=== PATIENT | female | born 1960 | race Caucasian/White ===

== ENCOUNTER 2019-04-26 10:28 | Emergency (ER) | payer OTHER ==
[~2019-04-26] VITALS: Ht 160 cm; Wt 84.0 kg
[2019-04-26 10:43] VITALS: Ht 160 cm; Wt 84.0 kg
[2019-04-26] MEDS ORDERED: SOD CHLORIDE 0.9% 1,000 ML IV STA (11:30)
[2019-04-26] MEDS ORDERED: LAMO200T2 PO (12:02)
[2019-04-26] MEDS ORDERED: BUSP15TA3 PO (12:03)
[2019-04-26] MEDS ORDERED: CITA40TA6 PO (12:03)
[2019-04-26] MEDS ORDERED: OMEP20CA16 PO (12:04)
[2019-04-26] MEDS ORDERED: ONDANSETRON 4 MG INJ IV PRN (13:00)
[2019-04-26] MEDS ORDERED: ACETAMINOPHEN 325 MG TAB PO PRN (13:00)
--- NOTE | 2019-04-26 13:12 | ERD ---
ER Documentation Chief Complaint Chief Complaint RECTAL BLEEDING, LOWER ABDOMINAL PAIN HPI This is a 59-year-old female with a past medical history of hypertension and bipolar. The patient presents to the emergency department as she stated yesterday she developed an episode of bright red blood per rectum. She was in [employer] shopping when she felt lightheaded and dizzy and felt as though she was in a pass out. She went to have a bowel movement stated she noticed blood present within the toilet bowl. The patient went to [facility] as she lives in [place], and she states this is the hospital she is gone to for several years. She stated when she was there they performed a CT scan with oral and IV contrast. She stated that they told her she was anemic and required blood transfusion. They also indicated that due to insurance changes she was capitated to [facility]. She states she signed a waiver she wanted to stay at [facility]. However she stated when she was there she left AMA she felt as though they were trying to force her out. She states she still feels slightly lightheaded and dizzy. She states her last colonoscopy was 5 years ago and her mother and sister also had colon carcinoma. She states she has had mild abdominal cramping in the left lower quadrant. Is been i ntermittent. There is no alleviating or exacerbating factors. She states the pain is 2 out of 10 in intensity. She denies any hemoptysis or hematemesis and states she has had no melanotic stools. She denies any history of alcohol abuse. She states she returns to [facility] today she believes that is where she is capitated to and wanted to receive a colonoscopy. ROS All systems reviewed and are negative except as per history of present illness. Medications Home Meds Reported Medications Omeprazole* (Omeprazole*) 20 Mg Capsule., 20 MG PO DAILY, #30 CAP 04/26/19 Buspirone Hcl* (Buspirone Hcl*) 15 Mg Tablet, 15 MG PO QHS, TAB 04/26/19 Citalopram Hydrobromide* (Citalopram Hydrobromide*) 40 Mg Tablet, 40 MG PO QHS, #30 TAB 04/26/19 Lamotrigine* (Lamotrigine*) 200 Mg Tablet, 200 MG PO QHS, TAB 04/26/19 Allergies Allergies: Coded Allergies: No Known Allergy (Unverified , 04/26/19) PMhx/Soc History of Surgery: No Anesthesia Reaction: No Hx Neurological Disorder: No Hx Respiratory Disorders: No Hx Cardiac Disorders: No Hx Psychiatric Problems: Yes (BIPOLAR,DEPRESSION) Hx Miscellaneous Medical Probl: No Hx Alcohol Use: No Hx Substance Use: No Hx Tobacco Use: No Smoking Status: Never smoker Physical Exam Vitals Vital Signs Date Temp Pulse Resp B/P (MAP) Pulse Ox O2 O2 Flow FiO2 Time Delivery Rate 04/26/19 98.2 69 19 137/69 98 10:43 (91) Physical Exam Constitutional:Well-developed. Well-nourished. HEENT:Normocephalic. Atraumatic.Pupils were equal round reactive to light. Moist mucous membranes.No tonsillar exudates. No conjunctival pallor Cardiovascular: Regular rate regular rhythm.No murmurs. No rubs were appreciated.S1, S2 normal. Distal pulses are palpable 2+ bilaterally. GI: Abdomen was soft. Nontender. Non Distended. No pulsatile abdominal masses or bruits. No rebound. No guarding. Bowel sounds were present and normal. Rectal: This was refused by the patient as she stated she had a rectal exam performed yesterday. She stated that she was told there is no hemorrhoids and the fecal occult blood test was positive. Muscle skeletal: Full range of motion of both the upper and lower extremities bilaterally.Normal muscle tone.No assymetrical calf tenderness or swelling. Skin: No petechia, no purpura. No lesions on the palms or the soles of the feet. No maculopapular rash. NEURO: Patient was alert, awake, orientated x3.No facial droop. Gait observed and normal with no ataxia.Speech had regular rate and rhythm. No focal neurological deficits. Result Diagram: 04/26/19 1159 04/26/19 1159 Results 24 hrs Laboratory Tests Test 04/26/19 11:59 White Blood Count 5.7 10^3/ul Red Blood Count 4.52 10^6/ul Hemoglobin 13.3 g/dl Hematocrit 41.5 % Mean Corpuscular Volume 91.8 fl Mean Corpuscular Hemoglobin 29.4 pg Mean Corpuscular Hemoglobin Concent 32.0 g/dl Red Cell Distribution Width 13.3 % Platelet Count 232 10^3/UL Mean Platelet Volume 10.3 fl Immature Granulocytes % 0.400 % Neutrophils % 52.1 % Lymphocytes % 30.0 % Monocytes % 7.8 % Eosinophils % 9.0 % Basophils % 0.7 % Nucleated Red Blood Cells % 0.0 /100WBC Immature Granulocytes # 0.020 10^3/ul Neutrophils # 3.0 10^3/ul Lymphocytes # 1.7 10^3/ul Monocytes # 0.4 10^3/ul Eosinophils # 0.5 10^3/ul Basophils # 0.0 10^3/ul Nucleated Red Blood Cells # 0.0 10^3/ul Prothrombin Time 12.2 Sec Prothrombin Time Ratio 1.0 INR International Normalized Ratio 0.89 Activated Partial Thromboplast Time 28.0 Sec Sodium Level 142 mmol/L Potassium Level 4.1 mmol/L Chloride Level 106 mmol/L Carbon Dioxide Level 31 mmol/L Anion Gap 5 Blood Urea Nitrogen 7 mg/dl Creatinine 0.69 mg/dl Est Glomerular Filtrat Rate mL/min > 60 mL/min Glucose Level 94 mg/dl Calcium Level 9.4 mg/dl Total Bilirubin 0.5 mg/dl Direct Bilirubin 0.00 mg/dl Indirect Bilirubin 0.5 mg/dl Aspartate Amino Transf (AST/SGOT) 23 IU/L Alanine Aminotransferase (ALT/SGPT) 32 IU/L Alkaline Phosphatase 100 IU/L Troponin I < 0.012 ng/ml Total Protein 7.1 g/dl Albumin 4.2 g/dl Globulin 2.90 g/dl Albumin/Globulin Ratio 1.44 Amylase Level 75 U/L Lipase 56 U/L Current Medications Medications Dose Sig/Nathaly Start Time Status Last (Trade) Ordered Route PRN Stop Time Admin Dose Reason Admin Sodium 1,000 ml @ Q1H STAT 04/26/19 DC 04/26/19 Chloride 1,000 mls/hr IV 11:30 12:05 04/26/19 12:29 Ondansetron 4 mg BRIDGE ORDER 04/26/19 HCl (Zofran PRN IV 13:00 Inj) NAUSEA/VOMITI 04/27/19 12:59 NG 650 mg ER BRIDGE 04/26/19 Acetaminophen PRN PO 13:00 (Tylenol .MILD PAIN 04/27/19 12:59 Tab) 1-3 OR TEMP Procedures/MDM The patient presented to the emergency department with hematochezia, suggesting a lower gastrointestinal bleeding. My differential diagnosis included but was not limited to diverticulosis, cancer, polyps, colitis, internal or external hemorrhoids, IBD, and vascular etiologies such as angiodysplasia or aortocolonic fistula. The patient was placed on a [facility] [place], continuous pulse oximetry, and IV access established by nursing staff. The patient was given a liter bolus of normal saline. 12 Lead EKG tracing ordered and reviewed by myself showed: Sinus bradycardia of of 57 bpm and no arrhythmia. GA interval normal. QRS duration normal. No ST segment elevation No ST segment depression. No changes consistent with acute ischemia. I was able to obtain the ancillary laboratory work performed yesterday at [facility]. The patient's hemoglobin was within normal limits at 14.0. Patient also had a CT scan of her abdomen performed. I received a copy of the report which indicate there is no diverticulosis. There is no evidence of obstruction or appendicitis or other acute life-threatening etiology. Today the patient's hemoglobin was within normal limits there is no leukocytosis. The patient did not show any evidence of hypotension. I did not feel the patient required admission at this time as she did not have any signs of an active upper or lower gas or intestinal bleed. I spoke with the patient in length and she did feel comfortable being discharged home. She goes to [facility], [place] and I did state that she will require an outpatient colonoscopy. She was given copies of all of her reports and states she felt comfortable doing so. She was not unsteady in her gait he did not feel as though she was in a pass out at the time of discharge. The patient was discharged home in fair condition. They were instructed to return to the emergency department at any time if there was any worsening of their condition. The patient stated they would follow up with their PCP in the next 24-48 hours to initiate a suitable medication regimen under the care of their PCP as well as to allow their PCP to monitor any drug reactions. The patient was discharged home with prescriptions after they gave informed consent to the new medication. They were also fully informed by myself on the adverse effects and adverse drug interactions in order to provide adequate safeguards to prevent possible adverse reactions to medications. Departure Diagnosis: Primary Impression: Lower GI bleed Condition: Fair Patient Instructions: Lower GI Endoscopy Additional Instructions: Please follow up with your PCP to arrange for an outpatient colonoscopy for lower GI bleeding .Thank you TRENT CHAN MD April 26, 2019 13:12
[2019-04-26 13:33] VITALS: BP 125/82; PULSE 66; RESP 18
== END 2019-04-26 13:45 | disposition home or self-care (01) ==
LOC: E/R 10:28
DX: K92.2 Gastrointestinal hemorrhage, unspecified (principal); I10 Essential (primary) hypertension
CPT/HCPCS: 36415; 80053; 82150; 83690; 84484; 85025; 85610; 85730; 86850; 86900; 86901; 93005; J7030; Z7502

== ENCOUNTER 2019-06-27 07:47 | Day surgery (SDC) | payer OTHER ==
[~2019-06-27] VITALS: Ht 160 cm; Wt 84.3 kg
[~2019-06-27 07:47] MED LIST: BUSP15TA; BUSP15TA3 PO; CITA-100; CITA40TA6 PO; LAMICTAL; LAMO200T2 PO; OMEP20CA16 PO; OMEPRAZOLE
[2019-06-27 08:19] VITALS: Ht 160 cm; Wt 84.3 kg
[2019-06-27 08:38] VITALS: BP 116/56; PULSE 55; RESP 16
--- NOTE | 2019-06-27 09:43 | PREAC ---
Date/Time of Note Date/Time of Note DATE: 06/27/19 TIME: 09:40 Anesthesia Eval and Record Evaluation Time Pre-Procedure Interview DATE: 06/27/19 TIME: 09:40 Age 59 Sex female NPO: 8 hrs Preoperative diagnosis reflux, rectal bleeding Planned procedure EGD, Colonoscopy Past Medical History Past Medical History: Includes Pulm: Smoking Hx GI: GERD, Morbid obesity Surgery & Anesthesia Issues No known issue Meds Anticoagulation: Yes Beta Constantino within 24 hr: Yes Reported Medications [Lamictal] No Conflict Check 06/27/19 [Omeprazole] No Conflict Check 06/27/19 Buspirone Hcl* (Buspar*) 15 Mg Tablet 02/26/11 Citalopram Hydrobromide (Celexa) 40 Mg Tablet 02/26/11 Meds reviewed: Yes Allergies Coded Allergies: No Known Allergy (Unverified , 06/27/19) Allergies Reviewed: Yes Labs/Studies Labs Reviewed: Reviewed by anesthesiologist test: N/A Studies: ECG Pre-procedure Exam Last vitals Vital Signs Date Temp Pulse Resp B/P (MAP) Pulse Ox O2 O2 Flow FiO2 Time Delivery Rate 06/27/19 97.5 55 16 116/56 96 Room Air 08:38 (76) Airway: Adequate mouth opening, Adequate thyromental dist Mallampati: Mallampati II Teeth: Normal Lung: Normal Heart: Normal ASA Physical Status ASA physical status: 3 Emergency: None Planned Anesthetic General/MAC: MAC Planned Pain Management Parenteral pain med Pre-operative Attestations Prior to commencing anesthesia and surgery, the patient was re-evaluated, there was verification of: *The patient's identity *The results of appropriate recent lab work and preoperative vital signs *The above evaluation not changing prior to induction *Anesthetic plan, risk benefits, alternative and complications discussed with patient/family; questions answered; patient/family understands, accepts and wishes to proceed. BAUTISTA LONG MD Jun 27, 2019 09:43
[2019-06-27] MEDS ORDERED: LIDOCAINE 2% (SDV) 5 ML INJ ONE (09:44)
[2019-06-27] MEDS ORDERED: PROPOFOL 60 ML ONE (09:44)
--- NOTE | 2019-06-27 10:22 | PAC ---
Date/Time of Note Date/Time of Note DATE: 06/27/19 TIME: 10:22 Post-Anesthesia Notes Post-Anesthesia Note Last documented vital signs Vital Signs Date Temp Pulse Resp B/P (MAP) Pulse Ox O2 O2 Flow FiO2 Time Delivery Rate 06/27/19 97.5 55 16 116/56 96 Room Air 08:38 (76) Activity: WNL Respiratory function: WNL Cardiovascular function: WNL Mental status: Baseline Pain reasonably controlled: Yes Hydration appropriate: Yes Nausea/Vomiting absent: Yes Comments BP:112/56, P:77, Spo2:100%, T:98,8 BAUTISTA LONG MD Jun 27, 2019 10:22
[2019-06-27 10:48] VITALS: BP 106/57; PULSE 68; RESP 16
== END 2019-06-27 14:22 | disposition home or self-care (01) ==
LOC: GIL 07:47 → MERGE 07:47 → GIL 07:54
PROVIDERS: ATTEND Internal Medicine Gastroenterology
DX: K64.8 Other hemorrhoids (principal); K21.0 Gastro-esophageal reflux disease with esophagitis; F17.200 Nicotine dependence, unspecified, uncomplicated; E66.9 Obesity, unspecified; Z68.32 Body mass index [BMI] 32.0-32.9, adult; K44.9 Diaphragmatic hernia without obstruction or gangrene
CPT/HCPCS: 43239; 45378; 88305; 88312; 88313; Z7610